=== PATIENT | male | born 1985 | race Asian ===

== ENCOUNTER 2018-04-04 07:40 | Emergency (ER) | payer OTHER ==
--- NOTE | 2018-04-04 08:22 | EDPHYS ---
Physician Documentation [facility] Name: Ronal Deras Age: 32 yrs Sex: Male : 1985 Arrival Date: 04/04/2018 Time: 07:44 Bed 13 Private MD: None, None ED Physician Adolfo Edmonds HPI: 04/04 08:07 This 32 yrs old Male presents to ER via Ambulatory with complaints of Cough, kb Fever, Sore Throat. 08:07 The patient or guardian reports cough, that is intermittent, described as moderate, kb with no sputum. Onset: The symptoms/episode began/occurred 4 day(s) ago. Severity of symptoms: At their worst the symptoms were moderate, in the emergency department the symptoms are unchanged. Modifying factors: The symptoms are alleviated by nothing, the symptoms are aggravated by nothing. Associated signs and symptoms: Pertinent positives: fever, sore throat, Pertinent negatives: chest pain, diarrhea, ear ache, nausea, rhinorrhea, vomiting. The patient has not experienced similar symptoms in the past. The patient has not recently seen a physician. Historical: - Allergies: 07:56 No Known Allergies; iw - Home Meds: 07:56 Ventolin Rotahaler/Rotacaps Inhl [Active]; iw - PMHx: 07:56 Asthma; iw - PSHx: 07:56 Hernia repair; iw - Immunization history:: Adult Immunizations up to date. - Social history:: Smoking status: Patient/guardian denies using tobacco. - Ebola Screening: : Patient negative for fever greater than or equal to 101.5 degrees Fahrenheit, and additional compatible Ebola Virus Disease symptoms Patient denies exposure to infectious person Patient denies travel to an Ebola-affected area in the 21 days before illness onset No symptoms or risks identified at this time. ROS: 08:06 Neck: Negative for injury, pain, and swelling, Cardiovascular: Negative for chest pain, kb palpitations, and edema, Abdomen/GI: Negative for abdominal pain, nausea, vomiting, diarrhea, and constipation, Back: Negative for injury and pain, : Negative for injury, bleeding, discharge, and swelling, MS/Extremity: Negative for injury and deformity, Skin: Negative for injury, rash, and discoloration, Neuro: Negative for headache, weakness, numbness, tingling, and seizure. 08:06 Constitutional: Positive for chills, fever, Negative for body aches, fatigue, malaise, poor PO intake, weight loss. 08:06 ENT: Positive for sore throat. 08:06 Respiratory: Positive for cough, Negative for dyspnea on exertion, hemoptysis, orthopnea, pleurisy, shortness of breath, sputum production, wheezing. Exam: 08:06 Constitutional: This is a well developed, well nourished patient who is awake, alert, kb and in no acute distress. Head/Face: Normocephalic, atraumatic. Neck: Trachea midline, no thyromegaly or masses palpated, and no cervical lymphadenopathy. Supple, full range of motion without nuchal rigidity, or vertebral point tenderness. No Meningismus. Chest/axilla: Normal chest wall appearance and motion. Nontender with no deformity. No lesions are appreciated. Cardiovascular: Regular rate and rhythm with a normal S1 and S2. No gallops, murmurs, or rubs. Normal PMI, no JVD. No pulse deficits. Respiratory: Lungs have equal breath sounds bilaterally, clear to auscultation and percussion. No rales, rhonchi or wheezes noted. No increased work of breathing, no retractions or nasal flaring. Abdomen/GI: Soft, non-tender, with normal bowel sounds. No distension or tympany. No guarding or rebound. No evidence of tenderness throughout. Back: No spinal tenderness. No costovertebral tenderness. Full range of motion. Skin: Warm, dry with normal turgor. Normal color with no rashes, no lesions, and no evidence of cellulitis. MS/ Extremity: Pulses equal, no cyanosis. Neurovascular intact. Full, normal range of motion. Neuro: Awake and alert, GCS 15, oriented to person, place, time, and situation. Cranial nerves II-XII grossly intact. Motor strength 5/5 in all extremities. Sensory grossly intact. Cerebellar exam normal. Normal gait. 08:06 ENT: External ear(s): are unremarkable, Ear canal(s): are normal, TM's: are normal, Nose: is normal, Mouth: is normal, Posterior pharynx: Airway: normal, no evidence of obstruction, Uvula: normal, midline, swelling, is not appreciated, erythema, that is moderate. Vital Signs: 07:56 BP 145 / 88; Pulse 69; Resp 16 S; Temp 98.3(O); Pulse Ox 97% on R/A; Weight 66.68 kg; iw Height 5 ft. 6 in. (167.64 cm); Pain 3/; 07:56 Body Mass Index 23.73 (66.68 kg, 167.64 cm) MDM: 07:47 Patient medically screened. kb 08:05 Data reviewed: vital signs, nurses notes. Data interpreted: Pulse oximetry: on room air kb is 97 %. Interpretation: acceptable. 08:21 Counseling: I had a detailed discussion with the patient and/or guardian regarding: the kb historical points, exam findings, and any diagnostic results supporting the discharge/admit diagnosis, lab results, the need for outpatient follow up, a family practitioner, to return to the emergency department if symptoms worsen or persist or if there are any questions or concerns that arise at home. 04/04 07:54 Order name: Flu; Complete Time: 08:21 04/04 07:54 Order name: Strep; Complete Time: 08:19 04/04 08:16 Order name: Throat Culture EDMS Administered Medications: 08:23 Drug: DuoNeb (3:1) (2.5 mg - 0.5 mg) 3 ml Route: Nebulizer; ph 08:57 Follow up: Response: No adverse reaction ph Disposition: 16:57 Co-signature as Attending Physician, Adolfo Edmonds MD. rn Disposition: 04/04/18 08:21 Discharged to Home. Impression: Acute pharyngitis. - Condition is Stable. - Discharge Instructions: Pharyngitis, [id number]. - Medication Reconciliation Form, Thank You Letter, Antibiotic Education, Prescription Opioid Use, Work release form form. - Follow up: Emergency Department; When: As needed; Reason: Worsening of condition. Follow up: Private Physician; When: 2 - 3 days; Reason: Recheck today's complaints, Continuance of care, Re-evaluation by your physician. Signatures: Dispatcher [employer] EDMS Aleta James, CESAR-C APPLICATION SPEC-Yoly Javed, ORLY RN Adolfo Edmonds MD MD rn Hall, Patricia, RN RN ph Corrections: (The following items were deleted from the chart) 08:58 08:21 04/04/2018 08:21 Discharged to Home. Impression: Acute pharyngitis. Condition is ph Stable. Forms are Medication Reconciliation Form, Thank You Letter, Antibiotic Education, Prescription Opioid Use. Follow up: Emergency Department; When: As needed; Reason: Worsening of condition. Follow up: Private Physician; When: 2 - 3 days; Reason: Recheck today's complaints, Continuance of care, Re-evaluation by your physician. kb
--- NOTE | 2018-04-04 08:22 | ER ---
Nurse's Notes [facility] Name: Ronal Deras Age: 32 yrs Sex: Male : 1985 Arrival Date: 04/04/2018 Time: 07:44 Bed 13 Private MD: None, None Diagnosis: Acute pharyngitis Presentation: 04/04 07:54 Presenting complaint: Patient states: cough X 3-4 days, headache, sore throat today, iw felt like he was running fever yesterday, +chills. Transition of care: patient was not received from another setting of care. Onset of symptoms was April 01, 2018. Risk Assessment: Do you want to hurt yourself or someone else? Patient reports no desire to harm self or others. Initial Sepsis Screen: Does the patient meet any 2 criteria? No. Patient's initial sepsis screen is negative. Does the patient have a suspected source of infection? No. Patient's initial sepsis screen is negative. Care prior to arrival: None. 07:54 Method Of Arrival: Ambulatory iw 07:54 Acuity: RYAN 4 iw Historical: - Allergies: 07:56 No Known Allergies; iw - Home Meds: 07:56 Ventolin Rotahaler/Rotacaps Inhl [Active]; iw - PMHx: 07:56 Asthma; iw - PSHx: 07:56 Hernia repair; iw - Immunization history:: Adult Immunizations up to date. - Social history:: Smoking status: Patient/guardian denies using tobacco. - Ebola Screening: : Patient negative for fever greater than or equal to 101.5 degrees Fahrenheit, and additional compatible Ebola Virus Disease symptoms Patient denies exposure to infectious person Patient denies travel to an Ebola-affected area in the 21 days before illness onset No symptoms or risks identified at this time. Screenin:44 Abuse screen: Denies threats or abuse. Denies injuries from another. Nutritional ph screening: No deficits noted. Tuberculosis screening: No symptoms or risk factors identified. Fall Risk None identified. Assessment: 08:10 General: Appears in no apparent distress. comfortable, slender, well groomed, Behavior ph is calm, cooperative, appropriate for age, Reports chills for fever for 12-24 hours. Pain: Complains of pain in low back area and throat. Neuro: Level of Consciousness is awake, alert, obeys commands, Oriented to person, place, time, situation. Cardiovascular: Capillary refill < 3 seconds in bilateral fingers Patient's skin is warm and dry. Respiratory: Reports cough that is Airway is patent Respiratory effort is even, unlabored, Respiratory pattern is regular, symmetrical, Breath sounds are clear in left posterior lower lobe, right posterior middle lobe and right posterior lower lobe Breath sounds with wheezes in mediastinum. GI: No signs and/or symptoms were reported involving the gastrointestinal system. EENT: Throat is reddened Reports pain when swallowing. Derm: Skin is intact, is healthy with good turgor, Skin is pink, warm \T\ dry. Musculoskeletal: Circulation, motion, and sensation intact. Range of motion: intact in all extremities. 08:42 Reassessment: Patient appears in no apparent distress at this time. Patient and/or ph family updated on plan of care and expected duration. Pain level reassessed. Patient is alert, oriented x 3, equal unlabored respirations, skin warm/dry/pink. waiting completion of neb tx before d/c. Vital Signs: 07:56 BP 145 / 88; Pulse 69; Resp 16 S; Temp 98.3(O); Pulse Ox 97% on R/A; Weight 66.68 kg; iw Height 5 ft. 6 in. (167.64 cm); Pain 3/10; 07:56 Body Mass Index 23.73 (66.68 kg, 167.64 cm) iw ED Course: 07:44 Patient arrived in ED. sb2 07:45 None, None is Private Physician. sb2 07:46 Aleta James [facility]-C [facility]. kb 07:46 Adolfo Edmonds MD is Attending Physician. kb 07:55 Triage completed. iw 07:56 Arm band placed on. iw 07:59 Flu and/or RSV swab sent to lab. Strep swab sent to lab. dh3 08:15 Cortney Abarca, RN is Primary Nurse. ph 08:45 Patient has correct armband on for positive identification. Bed in low position. Call ph light in reach. Side rails up X 1. 08:45 No provider procedures requiring assistance completed. Patient did not have IV access ph during this emergency room visit. Administered Medications: 08:23 Drug: DuoNeb (3:1) (2.5 mg - 0.5 mg) 3 ml Route: Nebulizer; ph 08:57 Follow up: Response: No adverse reaction ph Outcome: 08:21 Discharge ordered by MD. urena 08:56 Discharged to home ambulatory. ph 08:56 Condition: good 08:56 Discharge instructions given to patient, Instructed on discharge instructions, follow up and referral plans. Demonstrated understanding of instructions, follow-up care. 08:58 Patient left the ED. ph Signatures: Aleta James, HILLARY GUERRERO-Yoly Javed RN RN Cortney Abarca RN RN Keysha Smith 3 Denise Orellana 2
[2018-04-04] MEDS ORDERED: IPRATROPIUM BROM 0.5MG/2.5ML ONE (08:26)
[2018-04-04] MEDS ORDERED: ALBUTEROL 2.5 MG/3 ML NEB SOL ONE (08:26)
== END 2018-04-04 08:58 | disposition home or self-care (01) ==
LOC: ER 07:40
DX: J02.9 Acute pharyngitis, unspecified (principal); J45.909 Unspecified asthma, uncomplicated
CPT/HCPCS: 87070; 87081; 87804; 94640; 99284